=== PATIENT | female | born 1985 | race Caucasian/White ===

== ENCOUNTER 2024-11-27 13:32 | Emergency (ER) | payer MEDICAID, OTHER ==
[~2024-11-27] VITALS: Ht 165.1 cm; Wt 85.0 kg
[2024-11-27 13:49] VITALS: BP 120/84; PULSE 143; RESP 15; O2SAT 97
[2024-11-27] MEDS ORDERED: PENI500T2 PO (13:51)
[2024-11-27] MEDS ORDERED: HYDR-4902 PO (13:51)
--- NOTE | 2024-11-27 14:18 | ED.PDOC ---
History of Present Illness HPI Comments 39-year-old female who comes in with chief complaint of tooth pain. The patient states that the symptoms started approximately three days ago. The patient was having a significant amount of pain around the lower molar area on the left side of the face. The patient denies any nausea, vomiting or diarrhea. There has been no fever or chills. Chief Complaint: Tooth Pain Time Seen by MD: 13:45 Primary Care Provider: NONE Reviewed Notes: Nurses Notes, Medications, Allergies (No allergies to medications) Allergies: Coded Allergies: NO KNOWN ALLERGIES (Unverified , 11/27/24) Home Meds Active Scripts Penicillin V Potassium (Veetids) 500 Mg Tab, 1 TAB PO TID, #30 TAB Prov:SHANTELLE BANKS MD 11/27/24 Hydrocodone-Acetaminophen (Hydrocodone Bitartrate/AC 5-325 mg) 1 Tab Tab, 1 TAB PO Q8HP PRN for 5 Days, #15 TAB Prov:SHANTELLE BANKS MD 11/27/24 Information Source: Patient Mode of Arrival: Ambulatory Severity: Moderate Timing: Days Duration: Since onset Prehospital treatment: None Associated signs and symptoms No fever or chills Past Medical History PAST MEDICAL HISTORY: Cancer (Previous history of breast cancer), HTN, Thyroid Surgical History: Hysterectomy, Tonsillectomy Surgical History (Other): Bilateral breast mastectomy VIDEO RENTAL CLERK History: No Pertinent VIDEO RENTAL CLERK History Family History Family History (Other): Hypertension Social History Smoker: Other (VAPE) Alcohol: Denies ETOH Use Drugs: Denies Drug Use Lives In: Home Constitutional: denies: chills, diaphoresis, fatigue, fever, malaise, sweats, weakness, others EENTM: reports: others (Tooth pain); denies: blurred vision, double vision, ear bleeding, ear discharge, ear drainage, ear pain, ear ringing, eye pain, eye redness, hearing loss, mouth pain, mouth swelling, nasal discharge, nose bleeding, nose congestion, nose pain, photophobia, tearing, throat pain, throat swelling, voice changes Respiratory: denies: cough, hemoptysis, orthopnea, SOB at rest, shortness of breath, SOB with excertion, stridor, wheezing, others Cardiovascular: denies: chest pain, dizzy spells, diaphoresis, Dyspnea on exertion, edema, irregular heart beat, left arm pain, lightheadedness, palpitations, PND, syncope, others Gastrointestinal: denies: abdomen distended, abdominal pain, blood streaked bowels, constipated, diarrhea, dysphagia, difficulty swallowing, hematemesis, melena, nausea, poor appetite, poor fluid intake, rectal bleeding, rectal pain, vomiting, others Genitourinary: denies: abnormal vagina bleeding, burning, dyspareunia, dysuria, flank pain, frequency, hematuria, incontinence, pain, , vagina discharge, urgency, others Neurological: denies: dizziness, fainting, headache, left sided numbness, left sided weakness, numbness, paresthesia, pre-existing deficit, right sided numbness, right sided weakness, seizure, speech problems, tingling, tremors, weakness, others Musculoskeletal: denies: back pain, gout, joint pain, joint swelling, muscle pain, muscle stiffness, neck pain, others Integumetry: denies: bruises, change in color, change in hair/nails, dryness, laceration, lesions, lumps, rash, wounds, others Allergic/Immunocompromised: denies: Difficulty Healing, Frequent Infections, Hives, Itching, others Hematologic/Lymphatic: denies: anemia, blood clots, easy bleeding, easy bruising, swollen glands, others Endocrine: denies: excessive hunger, excessive sweating, excessive thirst, excessive urination, flushing, intolerance to cold, intolerance to heat, unexplained weight gain, unexplained weight loss, others Psychiatric: denies: anxiety, bipolar disorder, depression, hopeless, panic disorder, schizophrenia, sleepless, suicidal, others Physical Exam General Appearance: Mild Distress HEENT: Pharynx Normal, TMs Normal, Other (Tooth pain to the molar left lower area) Neck: Full Range of Motion, Non-Tender, Normal, Normal Inspection Respiratory: Chest Non-Tender, Lungs Clear, No Accessory Muscle Use, No Respiratory Distress, Normal Breath Sounds Cardiovascular: No Edema, No JVD, No Murmur, No Gallop, Normal Peripheral Pulses, Regular Rate/Rhythm Breast Exam: Deferred Gastrointestinal: No Organomegaly, Non Tender, No Pulsatile Mass, Normal Bowel Sounds, Soft Genitalia: Deferred Pelvic: Deferred Rectal: Deferred Extremities: No calf tenderness, Normal capillary refill, Normal inspection, Normal range of motion, Non-tender, No pedal edema Musculoskeletal : Apperance: Normal Neurologic: Alert, sound engineering technician II-XII nml as Tested, No Motor Deficits, Normal Affect, Normal Mood, No Sensory Deficits Cerebellar Function: Normal Reflexes: Normal Skin: Dry, Normal Color, Warm Lymphatic: No Adenopathy Was a procedure done? Was a procedure done?: No Differential Dx Considerations may include: Dental caries, gingivitis X-Ray, Labs, Meds, VS Vital Signs Date Time Temp Pulse Resp B/P (MAP) Pulse Ox O2 Delivery O2 Flow Rate FiO2 11/27/24 13:49 98.3 143 15 120/84 (96) 97 At this time, the patient was being discharged The patient will be placed on penicillin and [place] The patient was told to follow up with the dentist immediately The patient will return to the emergency department's the condition worsens. Time of 1ST Reevaluation: 14:17 Reevaluation 1ST: Improved Patient Education/Counseling: Diagnosis, Treatment, Prognosis, Need For Follow Up Family Education/Counseling: No Family Present Departure 1 Departure Time of Disposition: 14:17 Impression: Primary Impression: Dental caries Disposition: 01 HOME / SELF CARE / HOMELESS Condition: Fair e-Prescriptions Penicillin V Potassium (Veetids) 500 Mg Tab 1 TAB PO TID, #30 TAB Prov: SHANTELLE BANKS MD 11/27/24 Hydrocodone-Acetaminophen (Hydrocodone Bitartrate/AC 5-325 mg) 1 Tab Tab 1 TAB PO Q8HP PRN for 5 Days, #15 TAB Prov: SHANTELLE BANKS MD 11/27/24 Discharged With: Self Critical Care Note Critical Care Time?: No Stability Stability form required: No Heart Score Heart Score: Heart Score Response (Comments) Value History N/A 0 EKG N/A 0 Age N/A 0 Risk Factors N/A 0 Troponin N/A 0 Total 0 SHANTELLE BANKS MD Nov 27, 2024 14:18
[2024-11-28] MEDS ORDERED: IBUP-1455 PO (12:20)
[2024-11-28] MEDS ORDERED: HYDR-4902 PO (12:20)
[2024-11-28] MEDS ORDERED: CLIN-203 PO (12:20)
== END 2024-11-27 18:00 | disposition home or self-care (01) ==
LOC: ER 13:32
DX: K02.9 Dental caries, unspecified (principal); I10 Essential (primary) hypertension; E03.9 Hypothyroidism, unspecified; Z98.890 Other specified postprocedural states; Z90.710 Acquired absence of both cervix and uterus

== ENCOUNTER 2024-11-28 11:10 | Emergency (ER) | payer MEDICAID ==
[~2024-11-28] VITALS: Ht 165.1 cm; Wt 85.0 kg
[~2024-11-28 11:10] MED LIST: HYDR-4902 PO; PENI500T2 PO
--- NOTE | 2024-11-28 12:19 | ED.PDOC ---
Eye-HPI HPI Comments 39 y.o female with PMHx of breast cancer, on remission, thyroid disease, and HTN, presents to the ED for an evaluation of a tooth abscess. Patient reports 3 days ago she woke up with tenderness to the left lower tooth and the following day developed erythema and swelling with worsening pain. Patient was seen at this ED yesterday, was told to follow up with dentist and was prescribed antibiotics with pain medication but was unable to pick it up at the pharmacy due to information submitted incorrectly. Patient today went to the dentist but was sent back to the ED with a diagnose of premolar left sided large swelling and that she needed IV antibiotics prior to dental procedure going forward. Patient denies any fever, chills, nausea, vomiting, bleeding, discharge. Chief Complaint: Tooth Pain Time Seen by MD: 11:51 Primary Care Provider: none Reviewed Notes: Nurses Notes, Medications, Allergies Allergies: Coded Allergies: NO KNOWN ALLERGIES (Unverified , 11/27/24) Home Meds Active Scripts Hydrocodone-Acetaminophen (Hydrocodone Bitartrate/AC 5-325 mg) 1 Tab Tab, 1 TAB PO Q6HP PRN, #20 TAB prn breakthrough pain Prov:JERRY TITUS MD 11/28/24 Ibuprofen Micronized (Ibuprofen) 800 Mg Tab, 800 MG PO Q8HP PRN, #30 TAB prn pain. take with food Prov:JERRY TITUS MD 11/28/24 Clindamycin HCl (Clindamycin Hydrochloride) 300 Mg Cap, 300 MG PO Q6HWA for 10 Days, #40 CAP Prov:JERRY TITUS MD 11/28/24 Penicillin V Potassium (Veetids) 500 Mg Tab, 1 TAB PO TID, #30 TAB Prov:SHANTELLE BANKS MD 11/27/24 Hydrocodone-Acetaminophen (Hydrocodone Bitartrate/AC 5-325 mg) 1 Tab Tab, 1 TAB PO Q8HP PRN for 5 Days, #15 TAB Prov:SHANTELLE BANKS MD 11/27/24 Information Source: Patient Mode of Arrival: Ambulatory Timing: Days (3) Duration: Since onset Mouth: Left, Lower, Tender, Swelling, Red Associated signs and symptoms: Tooth Pain Past Medical History PAST MEDICAL HISTORY: Cancer, HTN, Thyroid Past Medical History (Other): remission Surgical History: Hysterectomy, Tonsillectomy Surgical History (Other): bilateral mastectomy CONE CLASSIFIER TENDER History: No Pertinent CONE CLASSIFIER TENDER History Family History Family History (Other): Hypertension Social History Smoker: Other Alcohol: Denies ETOH Use Drugs: Denies Drug Use Lives In: Home Constitutional: denies: chills, diaphoresis, fatigue, fever, malaise, sweats, weakness, others EENTM: reports: others (tooth pain); denies: blurred vision, double vision, ear bleeding, ear discharge, ear drainage, ear pain, ear ringing, eye pain, eye redness, hearing loss, mouth pain, mouth swelling, nasal discharge, nose bleeding, nose congestion, nose pain, photophobia, tearing, throat pain, throat swelling, voice changes Respiratory: denies: cough, hemoptysis, orthopnea, SOB at rest, shortness of breath, SOB with excertion, stridor, wheezing, others Cardiovascular: denies: chest pain, dizzy spells, diaphoresis, Dyspnea on exertion, edema, irregular heart beat, left arm pain, lightheadedness, palpitations, PND, syncope, others Gastrointestinal: denies: abdomen distended, abdominal pain, blood streaked bowels, constipated, diarrhea, dysphagia, difficulty swallowing, hematemesis, melena, nausea, poor appetite, poor fluid intake, rectal bleeding, rectal pain, vomiting, others Genitourinary: denies: abnormal vagina bleeding, burning, dyspareunia, dysuria, flank pain, frequency, hematuria, incontinence, pain, , vagina discharge, urgency, others Neurological: denies: dizziness, fainting, headache, left sided numbness, left sided weakness, numbness, paresthesia, pre-existing deficit, right sided numbness, right sided weakness, seizure, speech problems, tingling, tremors, weakness, others Musculoskeletal: denies: back pain, gout, joint pain, joint swelling, muscle pa in, muscle stiffness, neck pain, others Integumetry: reports: others (left bottom tooth abscess with erythema and swelling ); denies: bruises, change in color, change in hair/nails, dryness, laceration, lesions, lumps, rash, wounds Allergic/Immunocompromised: denies: Difficulty Healing, Frequent Infections, Hives, Itching, others Hematologic/Lymphatic: denies: anemia, blood clots, easy bleeding, easy bruising, swollen glands, others Endocrine: denies: excessive hunger, excessive sweating, excessive thirst, excessive urination, flushing, intolerance to cold, intolerance to heat, unexplained weight gain, unexplained weight loss, others Psychiatric: denies: anxiety, bipolar disorder, depression, hopeless, panic disorder, schizophrenia, sleepless, suicidal, others All Other Systems: Reviewed and Negative Physical Exam General Appearance: No Apparent Distress HEENT: Other (Left lower incisor tender with surrounding gingival tenderness and edema. Left lower mandibular area soft tissue tenderness, erythema and mild edema. No fluctuance or discharge.) Neck: Full Range of Motion, Normal Inspection Respiratory: Lungs Clear, No Accessory Muscle Use, No Respiratory Distress, Normal Breath Sounds Cardiovascular: No Edema, No JVD, Regular Rate/Rhythm Breast Exam: Deferred Gastrointestinal: Non Tender, Soft Genitalia: Deferred Pelvic: Deferred Rectal: Deferred Extremities: Normal inspection, Normal range of motion, Non-tender, No pedal edema Neurologic: Alert (Oriented x4), No Motor Deficits, Normal Affect, Normal Mood, No Sensory Deficits Cerebellar Function: NOT DONE Reflexes: NOT DONE Skin: Dry, Warm, Other (Left lower mandibular area soft tissue tenderness, swe lling and erythema) Lymphatic: NOT DONE Was a procedure done? Was a procedure done?: No EENT DIFF Eye: N/A Ear: N/A Mouth: Other (periapical granuloma or cyst, buccal bifurcation cyst, periodontal abscess, peritonsillar abscess, gingival abscess) Sore Throat: N/A Other Differential Diagnosis Dental caries, dental abscess, gingivitis, among others X-Ray, Labs, Meds, VS Vital Signs Date Time Temp Pulse Resp B/P (MAP) Pulse Ox O2 Delivery O2 Flow Rate FiO2 11/28/24 14:24 120 18 99 Room Air 11/28/24 14:24 98.7 120 18 144/97 (113) 99 98.7 11/28/24 11:23 98.2 138 17 138/94 (109) 99 Current Medications Medications (Trade) Dose Ordered Sig/Grey Route Start Time Stop Time Status Last Admin Clindamycin Phosphate 50 ml @ 50 mls/hr ONCE ONCE IV 11/28/24 12:30 11/28/24 13:29 DC 11/28/24 14:16 Ketorolac Tromethamine (Toradol Injection) 30 mg ONCE ONCE IV 11/28/24 12:30 11/28/24 12:31 DC 11/28/24 14:16 Sodium Chloride 1,000 ml @ 1,000 mls/hr Q1H ONCE IV 11/28/24 12:30 11/28/24 13:29 DC 11/28/24 14:16 X-Ray, Labs, Meds, VS Comment 39-year-old female with history of breast cancer in remission complaining of left lower tooth pain and mandibular area swelling. Referred by dentist for IV antibiotics. Vitals remarkable for heart rate 138, BP 138/94 Exam remarkable for left lower incisor tenderness, surrounding gingival erythema and edema, left lower mandibular area erythema, edema and tenderness. No fluctuance or discharge. Patient treated with the following in the ED: 1 L 0.9 normal saline IV bolus, clindamycin 900 mg IV, Toradol 30 mg IV, [place] 5/325 mg p.o. On re-evaluation, patient states pain has improved. Tachycardia has resolved. Other vitals are stable. Hospitalization was considered, however patient had rapid improvement of symptoms with treatment in the ED, and I no longer feel hospitalization is necessary. Patient now appears stable for outpatient treatment and close follow up with her dentist. Rx clindamycin, ibuprofen, [place] Time of 1ST Reevaluation: 12:12 Reevaluation 1ST: Unchanged Patient Education/Counseling: Diagnosis, Treatment, Prognosis Family Education/Counseling: No Family Present Departure 1 Departure Time of Disposition: 12:25 Impression: Primary Impression: Dental abscess Disposition: HOME / SELF CARE / HOMELESS Condition: Stable Additional Instructions: Follow up with your dentist in 1-2 days. e-Prescriptions Hydrocodone-Acetaminophen (Hydrocodone Bitartrate/AC 5-325 mg) 1 Tab Tab 1 TAB PO Q6HP PRN, #20 TAB prn breakthrough pain Prov: JERRY TITUS MD 11/28/24 Ibuprofen Micronized (Ibuprofen) 800 Mg Tab 800 MG PO Q8HP PRN, #30 TAB prn pain. take with food Prov: JERRY TITUS MD 11/28/24 Clindamycin HCl (Clindamycin Hydrochloride) 300 Mg Cap 300 MG PO Q6HWA for 10 Days, #40 CAP Prov: JERRY TITUS MD 11/28/24 Discharged With: Relative Critical Care Note Critical Care Time?: No Stability Stability form required: No I personally scribed for JERRY TITUS MD ([email or web address]) on 11/28/24 at 12:19. Electronically submitted by Elsa Purdy ([email or web address]). JERRY TITUS MD Nov 28, 2024 12:19
[2024-11-28] MEDS ORDERED: CLIN-203 PO (12:20)
[2024-11-28] MEDS ORDERED: IBUP-1455 PO (12:20)
[2024-11-28] MEDS ORDERED: HYDR-4902 PO (12:20)
[2024-11-28] MEDS: CLINDAMYCIN 900MG IV 50 ML IV ONE (14:16)
[2024-11-28] MEDS: KETOROLAC TROMETH 30 MG/ML 1ML VIAL IV ONE (14:16)
[2024-11-28] MEDS: SODIUM CHLORIDE 0.9% 1,000 ML IV ONE (14:16)
[2024-11-28 16:00] VITALS: BP 109/63; PULSE 106; RESP 17; TEMP 97.7; O2SAT 100
== END 2024-11-28 16:03 | disposition home or self-care (01) ==
LOC: ER 11:10
DX: K04.7 Periapical abscess without sinus (principal); I10 Essential (primary) hypertension; E07.9 Disorder of thyroid, unspecified; Z85.3 Personal history of malignant neoplasm of breast; Z90.710 Acquired absence of both cervix and uterus; Z90.89 Acquired absence of other organs; Z79.1 Long term (current) use of non-steroidal anti-inflammatories (NSAID); Z79.2 Long term (current) use of antibiotics; Z79.899 Other long term (current) drug therapy
CPT/HCPCS: 96365; 96366; 96375; 99284; J1885; J3490; J7030

== ENCOUNTER 2025-07-10 15:37 | Outpatient (CLI) | payer MEDICAID ==
[~2025-07-10 15:37] MED LIST changes: +CLIN-203 PO; +IBUP-1455 PO
== END 2025-07-10 17:00 | disposition home or self-care (01) ==
LOC: Rad HDHVI 15:37
PROVIDERS: ATTEND Internal Medicine Cardiovascular Disease
DX: R06.02 Shortness of breath (principal); R42 Dizziness and giddiness
CPT/HCPCS: 93306

== ENCOUNTER 2025-08-23 09:56 | Outpatient (CLI) | payer MEDICAID ==
[~2025-08-23] VITALS: Ht 165.1 cm; Wt 83.9 kg
--- NOTE | 2025-08-25 16:06 | DVHSR ---
APPROVED REPORT Exam: Nuclear Stress Test Indication: Dyspnea Ht: 5 ft 5 in Wt: 185 lbs BSA: 1.91 m2 HR: 93 bpm BP: 124/84 mmHg BMI: 30.78 Rhythm: NSR Medical History Medical History: Smoking, SOB, Dizziness, HTN, Hypercholesterolemia, Breast CA Medications: Zofran, Fenofibrate, Anastrazole, Vit D3, Losartan, Levothyroxine, Hctz, Imodium, Verzenio Allergies: No known drug allergies Cardiac Risk Factors: Family Hx of CAD Stress Test Details Stress Test: Exercise stress testing was performed using a [place] protocol. HR Resting HR: 93 bpm Max Heart Rate (APMHR): 179.399433 bpm Max HR Achieved: 176 bpm Target HR (85% APMHR): 152.738920 bpm % of APMHR: 98.32 Recovery HR: 101 bpm HR response to stress: accelerated BP Resting BP: 124/84 mmHg Max BP: 146/86 mmHg Recovery BP: 112/70 mmHg BP response to stress: Normal blood pressure response to stress. ECG Resting ECG: Sinus Rhythm Stress ECG: Sinus Tachycardia Arrhythmia: None Recovery ECG: Sinus Tachycardia Clinical Reason for Termination: target HR achieved Stress Symptoms: none Exercise duration: 3 min 00 sec Exercise capacity: 4.60 METs Stress ECG Conclusion NON ISCHEMIC CLINICAL RESPONSE NON ISCHEMIC ECG RESPONSE NON ISCHEMIC CARDIOLITE IMAGES EF >55% NM EXAM: Myocardial Perfusion REST/STRESS Imaging Protocol: Rest Tc-99m/Stress Tc-99m 1 day Resting Data Rest SPECT myocardial perfusion imaging was performed in supine position 30 minutes following the intravenous injection of 10.67 mCi of Tc-99m Sestamibi. Time of rest injection: 1020 Date: 08/23/2025 Time of rest imagin Date: 08/23/2025 Administration Route: IV Administration Site: Right Arm Exercise Stress At peak stress, the patient was injected intravenously with 30.3 mCi of Tc-99m Sestamibi. Time of stress injection: 1135 Date: 08/23/2025 Time of stress imagin Date: 08/23/2025 Administration Route: IV Administration Site: Right Arm Heart Rate at time of stress injection: 173 bpm. Patient continued to exercise for 1 minute(s). Gated Stress SPECT was performed 15 minutes after stress injection. The images were gated to evaluate regional wall motion and calculate left ventricular ejection fraction. Comments Cardiolite injection at 1 minute, 39 seconds into test. Nuclear Conclusion NON ISCHEMIC CLINICAL RESPONSE NON ISCHEMIC ECG RESPONSE NON ISCHEMIC CARDIOLITE IMAGES EF >55%
== END 2025-08-23 17:00 | disposition home or self-care (01) ==
LOC: Rad HDHVI 09:56
PROVIDERS: ATTEND Internal Medicine Cardiovascular Disease
DX: R00.0 Tachycardia, unspecified (principal); I10 Essential (primary) hypertension; Z13.6 Encounter for screening for cardiovascular disorders; R06.02 Shortness of breath; F17.210 Nicotine dependence, cigarettes, uncomplicated; R42 Dizziness and giddiness; E78.00 Pure hypercholesterolemia, unspecified; Z51.11 Encounter for antineoplastic chemotherapy; Z82.49 Family history of ischemic heart disease and other diseases of the circulatory system
CPT/HCPCS: 78452; 93017; A9500; 96374